=== PATIENT | female | born 1950 | race Caucasian/White ===

== ENCOUNTER 2017-02-01 06:37 | Day surgery (SDC) | payer MEDICARE, BC ==
[~2017-02-01 06:37] MED LIST: Lactated Ringers 1,000 ML IV SCH; Lidocaine 1%/Sod Bicarbonate in NS 8.4% 1 ML Syringe IV PRN; Sodium Chloride 0.9% 10 ML Syringe FLUSH PRN
[2017-02-01] MEDS ORDERED: fentaNYL 100 MCG/2 ML SDV ONE (07:12)
[2017-02-01] MEDS ORDERED: Lidocaine 1% 4 ML ONE (07:12)
[2017-02-01] MEDS ORDERED: Propofol 200 MG/20 ML SDV ONE (07:12)
[2017-02-01] MEDS ORDERED: Midazolam 1 MG/ML 2 ML SDV ONE (07:12)
--- NOTE | 2017-02-01 07:16 | PCM.PREANE ---
Preanesthetic Assessment - Allergies Allergies/Adverse Reactions: Allergies Allergy/AdvReac Type Severity Reaction Status Date / Time pollen extracts Allergy Cannot Verified 01/31/17 15:21 Remember seasonal Allergy Cannot Uncoded 01/31/17 15:21 Remember trees Allergy Cannot Uncoded 01/31/17 15:21 Remember PreAnesthesia Questionnaire HEENT History: Reports: Allergic rhinitis, Other (see below) Other HEENT History: impacted cerumen R ear, glasses, partial Cardiovascular History: Reports: High cholesterol, Hypertension, Other (see below) Other Cardiovascular History: DVT, hypokalemia Respiratory History: Reports: Bronchitis, recurrent Gastrointestinal History: Reports: Chronic diarrhea, GERD Genitourinary History: Reports: None 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 Musculoskeletal History: Reports: None Neurological History: Reports: None Psychiatric History: Reports: None Endocrine/Metabolic History: Reports: Hypothyroidism, Obesity/BMI 30+ Hematologic History: Reports: None Immunologic History: Reports: None Oncologic (Cancer) History: Reports: None Dermatologic History: Reports: None - Past Surgical History Head Surgeries/Procedures: Reports: None GI Surgical History: Reports: Cholecystectomy, Colonoscopy - SUBSTANCE USE Smoking Status *Q: Never Smoker Tobacco Use Within Last Twelve Months: No Second Hand Smoke Exposure: No Days Per Week of Alcohol Use: 0 Recreational Drug Use History: No - HOME MEDS Home Medications: Home Meds Cetirizine [ZyrTEC] 10 mg PO DAILY PRN 01/31/17 [History] Cholecalciferol (Vitamin D3) [Vitamin D3] 1,000 unit PO DAILY 01/31/17 [History] Hydrochlorothiazide 12.5 mg PO DAILY 01/31/17 [History] Levothyroxine 125 mcg PO DAILY 01/31/17 [History] Losartan [Cozaar] 50 mg PO DAILY 01/31/17 [History] Omeprazole [Omeprazole] 40 mg PO DAILY 01/31/17 [History] Pseudoephedrine HCl [Nasal Decongestant] 30 mg PO DAILY 01/31/17 [History] Rivaroxaban [Xarelto] 20 mg PO DAILY 01/31/17 [History] - CURRENT (IN HOUSE) MEDS Current Meds: Current Medications Lactated Ringer's (Ringers, Lactated) 1,000 mls @ 125 mls/hr IV ASDIRECTED GENIE Stop: 02/01/17 23:00 Lidocaine/Sodium Bicarbonate (Buffered Lidocaine 1% In Ns 8.4%) 0.25 ml IV ONETIME PRN PRN Reason: Prior to IV Start Stop: 02/01/17 18:00 Sodium Chloride (Saline Flush) 10 ml FLUSH ASDIRECTED PRN PRN Reason: Keep Vein Open Stop: 02/01/17 18:00 Discontinued Medications Fentanyl (Sublimaze) Confirm Administered Dose 100 mcg .ROUTE .STK-MED ONE Stop: 02/01/17 07:13 Lidocaine HCl (Xylocaine-Mpf 1%) Confirm Administered Dose 4 mls @ as directed .ROUTE .STK-MED ONE Stop: 02/01/17 07:13 Midazolam HCl (Versed 1 Mg/Ml) Confirm Administered Dose 2 mg .ROUTE .STK-MED ONE Stop: 02/01/17 07:13 Propofol (Diprivan 20 Ml) Confirm Administered Dose 200 mg .ROUTE .STK-MED ONE Stop: 02/01/17 07:13 Preanesthetic Assessment - ANESTHESIA/TRANSFUSION/FAMILY HX Anesthesia/Transfusion History: No Prior Transfusion(s), Prior Anesthesia (no prob) Family History of Anesthesia Reaction: No - REVIEW OF SYSTEMS Constitutional: Reports: no 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 Respiratory: Reports: no symptoms Cardiovascular: Reports: blood pressure problem GI: Reports: no symptoms Other: Reports: Easy Bruising, Thyroid Problems, Sinus Problem (pressure) - PHYSICAL ASSESSMENT Height: 5 ft 5 in Weight: 88.451 kg NPO Status Date: 02/01/17 NPO Status Time: 05:00 (half glass water with pills) ASA Class: 2 Mental Status: Alert & Oriented x3 Airway Class: Mallampati = 1 Dentition: Reports: Normal Dentition Thyro-Mental Finger Breadths: 3 Mouth Opening Finger Breadths: 3 ROM/Head Extension: Full Respiratory Status: lungs clear to auscultation bilaterally Cardiovascular Status: regular rate & rhythm, normal S1, S2, no murmur, blood pressure WNL - ALLERGIES Allergies/Adverse Reactions: Allergies Allergy/AdvReac Type Severity Reaction Status Date / Time pollen extracts Allergy Cannot Verified 01/31/17 15:21 Remember seasonal Allergy Cannot Uncoded 01/31/17 15:21 Remember trees Allergy Cannot Uncoded 01/31/17 15:21 Remember - BLOOD Blood Available: No - ANESTHESIA PLAN Preop Beta Clark: No Anesthesia Type Planned: MAC - ACKNOWLEDGEMENTS Pt an Appropriate Candidate for the Planned Anesthesia: Yes Alternatives and Risks of Anesthesia Discussed w Pt/Guardian: Yes Pt/Guardian Understands and Agrees with Anesthesia Plan: Yes
--- NOTE | 2017-02-01 08:33 | PCM.OPNOTE ---
- General Post-Op/Procedure Note Date of Surgery/Procedure: 02/01/17 Operative Procedure(s): colonoscopy with rectal biopsies times 2, using cold forceps Findings: sigmoid diverticulosis and internal hemorrhoids Pre Op Diagnosis: change in bowel habits Post-Op Diagnosis: 1. mixed hemorrhids. 2. sigmoid diverticulosis Anesthesia Technique: MAC, Moderate sedation Primary Surgeon: Jourdan Ochoa Pathology: random rectal biopsies x2 EBL in mLs: 0 Complications: None Condition: Good Free Text/Narrative:: After adequate IV sedation and analgesia was obtained the patient was placed on her left side. Perianal inspection and digital rectal examination revealed mild uncomplicated hemorrhoids. A lubricated colonoscope was inserted into the rectum then advanced under direct vision to the cecum with abdominal pressure. The bowel preparation was excellent. The cecum, right colon, transverse, and descending colons were endoscopically normal with no mas lesions or inflammatory changes seen. The sigmoid had a few scattered uncomplicated diverticula. The rectum was normal in both views. Given her history of change in bowel habits I took 2 random biopsies within the rectum for histologic review. Animal Killer photographs were taken for the patient and for the record. Air was removed, as I finished the procedure, which she tolerated well.
--- NOTE | 2017-02-01 08:33 | PCM48HPAN ---
Post Anesthesia Note - EVALUATION WITHIN 48HRS OF ANESTHETIC Vital Signs in Normal Range: Yes Patient Participated in Evaluation: Yes Respiratory Function Stable: Yes Airway Patent: Yes Cardiovascular Function Stable: Yes Hydration Status Stable: Yes Pain Control Satisfactory: Yes Nausea and Vomiting Control Satisfactory: Yes Mental Status Recovered: Yes
[2017-02-01 08:43] VITALS: BP 107/66
== END 2017-02-01 09:05 | disposition home or self-care (01) ==
LOC: JD.SDS 06:37
PROVIDERS: ATTEND Surgery
DX: K62.1 Rectal polyp (principal); K57.30 Diverticulosis of large intestine without perforation or abscess without bleeding; J30.1 Allergic rhinitis due to pollen; I10 Essential (primary) hypertension; K21.9 Gastro-esophageal reflux disease without esophagitis; E78.5 Hyperlipidemia, unspecified; E87.6 Hypokalemia; E03.9 Hypothyroidism, unspecified; E66.9 Obesity, unspecified; Z91.09 Other allergy status, other than to drugs and biological substances; Z79.899 Other long term (current) drug therapy; Z98.890 Other specified postprocedural states
CPT/HCPCS: 45380; 88305; J2250; J3010; J7120; J2704

== ENCOUNTER 2020-01-25 08:49 | Emergency (ER) | payer MEDICARE, BC ==
[2020-01-25 09:09] VITALS: BP 108/79; PULSE 97
--- NOTE | 2020-01-25 09:25 | EDM.PDOC ---
ED HPI GENERAL MEDICAL PROBLEM - General Chief Complaint: Respiratory Problem Stated Complaint: COUGH,SORE THROAT,CONGESTION Time Seen by Provider: 01/25/20 09:14 Source of Information: Reports: Patient History Limitations: Reports: No Limitations - History of Present Illness INITIAL COMMENTS - FREE TEXT/NARRATIVE: 69-year-old female presents to the ED with upper respiratory tract infection symptoms. Started with a sore throat and fever on January 18. The next day she developed a severe paroxysmal cough which has persisted. Is bringing up some greenish-yellow sputum. Coughed all night last night. Decreased appetite through this illness. Associated headache and generalized myalgia. Her granddaughter was brought to live with her for a few days from [place] and apparently tested positive for the influenza A virus. She herself has had a flu shot. She has also had intermittent diarrhea during this illness. A 2 or 3 times per day. Vomiting. Does feel lightheaded and dizzy and dehydrated. Onset: Sudden Onset Date: 01/19/20 Duration: Day(s):, Getting Worse (Paroxysmal cough) Location: Reports: Head (Take), Chest ( harsh paroxysmal productive cough), Generalized (Diffuse myalgia), Other (To both ears) Quality: Reports: Other (Headache with productive cough decreased appetite) Severity: Moderate Improves with: Reports: None Worsens with: Reports: Other (Down seems to make the cough much worse.) Context: Reports: Sick Contact. Denies: Activity, Exercise, Lifting, Trauma, Other (Granddaughter positive for influenza A) Associated Symptoms: Reports: Chest Pain, Cough, cough w sputum, Fever/Chills, Headaches (Coughing so much), Loss of Appetite, Malaise, Nausea/Vomiting, Shortness of Breath, Other (Area). 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 Allergy Rash Uncoded 01/25/20 09:00 metals. Allergy Rash Uncoded 01/25/20 09:00 seasonal Allergy Cannot Uncoded 01/25/20 08:59 Remember trees Allergy Cannot Uncoded 01/25/20 08:59 Remember Home Meds: Home Meds Cholecalciferol (Vitamin D3) [Vitamin D3] 1,000 unit PO DAILY 01/31/17 [History] Levothyroxine 125 mcg PO DAILY 01/31/17 [History] Losartan [Cozaar] 50 mg PO DAILY 01/31/17 [History] Omeprazole 40 mg PO DAILY 01/31/17 [History] Rivaroxaban [Xarelto] 20 mg PO DAILY 01/31/17 [History] Doxycycline [Vibramycin] 100 mg PO BID #20 cap 01/25/20 [Rx] Hydrocodone/Chlorphen P-Stirex [Hydrocodone-Chlorphen ER Susp] 5 ml PO Q12H #60 ml 01/25/20 [Rx] Past Medical History HEENT History: Reports: Allergic Rhinitis, Other (See Below) Other HEENT History: impacted cerumen R ear, glasses, partial Cardiovascular History: Reports: High Cholesterol, Hypertension, Other (See Below) Other Cardiovascular History: DVT Respiratory History: Reports: Bronchitis, Recurrent Gastrointestinal History: Reports: Chronic Diarrhea, GERD Genitourinary History: Reports: None 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 Musculoskeletal History: Reports: None Neurological History: Reports: None Psychiatric History: Reports: None Endocrine/Metabolic History: Reports: Hypothyroidism, Obesity/BMI 30+ Hematologic History: Reports: None Immunologic History: Reports: None Oncologic (Cancer) History: Reports: Breast Dermatologic History: Reports: None - Past Surgical History Head Surgeries/Procedures: Reports: None Musculoskeletal Surgical History: Reports: Shoulder Surgery Oncologic Surgical History: Reports: Lumpectomy Other Oncologic Surgeries/Procedures: radiation Social & Family History - Tobacco Use Smoking Status *Q: Never Smoker Second Hand Smoke Exposure: No - Caffeine Use Caffeine Use: Reports: None - Recreational Drug Use Recreational Drug Use: No - Living Situation & Occupation Living situation: Reports: Occupation: Retired ED ROS GENERAL - Review of Systems Review Of Systems: See Below Constitutional: Reports: Fever, Chills, Malaise, Weakness, Fatigue, Decreased Appetite, Weight Loss HEENT: Reports: Glasses Respiratory: Reports: Shortness of Breath, Cough, Sputum. Denies: Pleuritic Chest Pain, Hemoptysis Cardiovascular: Reports: Chest Pain, Dyspnea on Exertion, Lightheadedness. Denies: Blood Pressure Problem (Coughing so much), Claudication, Edema, Orthopnea Endocrine: Reports: Fatigue GI/Abdominal: Reports: Diarrhea (2-3 loose stools per day the last 3 days), Decreased Appetite : Reports: Frequency, Incontinence (Some stress-induced incontinence) Musculoskeletal: Reports: Back Pain, Muscle Pain Skin: Reports: No Symptoms (Generalized myalgia) Neurological: Reports: No Symptoms Psychiatric: Reports: No Symptoms Hematologic/Lymphatic: Reports: No Symptoms Immunologic: Reports: No Symptoms ED EXAM, GENERAL - Physical Exam Exam: See Below Exam Limited By: No Limitations General Appearance: Alert, WD/WN, Mild Distress, Other (Temperature is 37.2 pulse 97 sinus respiratory 16 BP 108/79 respiratory rate 93% on room air.) Eye Exam: Bilateral Eye: Normal Inspection, PERRL (Scleral icterus or blepharal pallor.) Ears: Normal TMs Throat/Mouth: Normal Inspection (Ears appear normal in spite of her complaining of ear pain.), Normal Lips, Normal Teeth, Normal Oropharynx Head: Atraumatic, Normocephalic. No: Facial Swelling, Facial Tenderness Neck: Normal Inspection, Supple, Non-Tender, Full Range of Motion. No: Lymphadenopathy (L), Lymphadenopathy (R) Respiratory/Chest: No Respiratory Distress, Decreased Breath Sounds ( lower lung chung), Rhonchi, Wheezing (I upper anterior chest. Patient expiratory wheeze from both). No: Lungs Clear, Normal Breath Sounds Cardiovascular: Normal Peripheral Pulses, Regular Rate, Rhythm, No Edema, No Gallop, No Murmur ( creased breath sounds to lower 20% lung chung bilaterally) , No Rub Peripheral Pulses: 2+: Posterior Tibial (L), Posterior Tibial (R), Dorsalis Pedis (L), Dorsalis Pedis (R) GI/Abdominal: Normal Bowel Sounds, Soft, Non-Tender, No Organomegaly, Distended (Mildly distended intubated back to percussion across the entire upper abdomen combined with aerophagia.) Back Exam: Normal Inspection, Full Range of Motion, CVA Tenderness (R). No: CVA Tenderness (L) Extremities: Normal Inspection, Normal Range of Motion, Non-Tender Neurological: Alert, Oriented, CN II-XII Intact, Normal Cognition, Sensory/ Motor Deficit Psychiatric: Normal Affect Course - Vital Signs Last Recorded V/S: Last Vital Signs Temp 37.2 C 01/25/20 09:03 Pulse 97 01/25/20 09:03 Resp 16 01/25/20 09:03 BP 108/79 01/25/20 09:03 Pulse Ox 94 L 01/25/20 09:44 - Orders/Labs/Meds Orders: Active Orders 24 hr Category Date Time Status EKG Documentation Completion [RC] STAT Care 01/25/20 10:37 Active Oxygen Therapy [RC] ASDIRECTED Care 01/25/20 10:38 Active RT Aerosol Therapy [RC] ASDIRECTED Care 01/25/20 09:26 Active Chest 1V Frontal [CR] Stat Exams 01/25/20 09:25 Taken Isolation [COMM] Routine Oth 01/25/20 09:25 Ordered Labs: Laboratory Tests 01/25/20 01/25/20 Range/Units 11:20 11:20 WBC 8.63 (3.98-10.04) K/mm3 RBC 4.50 (3.98-5.22) M/mm3 Hgb 14.3 (11.2-15.7) gm/dl Hct 42.8 (34.1-44.9) % MCV 95.1 H D (79.4-94.8) fl MCH 31.8 (25.6-32.2) pg MCHC 33.4 (32.2-35.5) g/dl RDW Std Deviation 46.5 H (36.4-46.3) fL Plt Count 282 (182-369) K/mm3 MPV 9.6 (9.4-12.3) fl Neut % (Auto) 59.8 (34.0-71.1) % Lymph % (Auto) 25.5 (19.3-51.7) % Barron % (Auto) 10.2 (4.7-12.5) % Eos % (Auto) 3.7 (0.7-5.8) Baso % (Auto) 0.6 (0.1-1.2) % Neut # (Auto) 5.16 (1.56-6.13) K/mm3 Lymph # (Auto) 2.20 (1.18-3.74) K/mm3 Barron # (Auto) 0.88 H (0.24-0.36) K/mm3 Eos # (Auto) 0.32 (0.04-0.36) K/mm3 Baso # (Auto) 0.05 (0.01-0.08) K/mm3 Sodium 141 (136-145) mEq/L Potassium 4.2 (3.5-5.1) mEq/L Chloride 104 (98-107) mEq/L Carbon Dioxide 24 (21-32) mEq/L Anion Gap 17.2 H (5-15) BUN 15 (7-18) mg/dL Creatinine 1.0 (0.55-1.02) mg/dL Est Cr Clr Drug Dosing 46.43 mL/min Estimated GFR (MDRD) 55 (>60) mL/min BUN/Creatinine Ratio 15.0 (14-18) Glucose 130 H (83-115) mg/dL Calcium 9.5 (8.5-10.1) mg/dL Total Bilirubin 0.4 (0.2-1.0) mg/dL AST 21 (15-37) U/L ALT 30 (14-59) U/L Alkaline Phosphatase 103 (46-116) U/L Troponin I < 0.017 (0.00-0.056) ng/mL C-Reactive Protein 5.2 H* (<1.0) mg/dL Total Protein 7.3 (6.4-8.2) g/dl Albumin 3.3 L (3.4-5.0) g/dl Globulin 4.0 gm/dL Albumin/Globulin Ratio 0.8 L (1-2) Meds: Medications Discontinued Medications Generic Name Dose Route Start Last Admin Trade Name Freq PRN Reason Stop Dose Admin Albuterol/Ipratropium 3 ml 01/25/20 09:26 01/25/20 09:44 Duoneb 3.0-0.5 Mg/3 Ml NEB 01/25/20 09:27 3 ml ONETIME ONE Administration - Radiology Interpretation Free Text/Narrative:: 69-year-old female presents to the ED with upper respiratory tract symptoms I sore throat sore ears paroxysmal productive cough generalized myalgia decreased appetite and headache since January 18. History suggests influenza. She was exposed to influenza A through 1 of her granddaughters last weekend. Oxygen levels a bit on the low side. She was given oxygen at 2 L/min by nasal cannula. - Re-Assessments/Exams Free Text/Narrative Re-Assessment/Exam: 01/25/20 10:36 influenza screen is negative. Chest x-ray is essentially within normal limits showing no obvious pneumonia and cardiac silhouette is normal. 01/25/20 11:52 Labs are pending. 01/25/20 12:38 Labs reveal a normal white count at 8.63. The auto differential shows 59% neutrophils are 60% neutrophils hemoglobin 14.3 with hematocrit of 42.8. Platelet count 282,000. Sodium is 141 with a potassium of 4.2 chloride 104 with a bicarb of 24. Anion gap slightly elevated at 17.2. BUN is 15 with a creatinine of 1.0. Glucose 130. Calcium 9.5 liver function is normal troponin I is less than 0.017 C-reactive protein is elevated at 5.2 total protein is 7.3 with an albumin fraction of 3.3. Patient therefore appears to have a bronchitis without pneumonia. To place her on doxycycline 100 mg twice daily for the next 10 days. Tussionex cough syrup 5 mils every 12 hours. For cough relief. Departure - Departure Time of Disposition: 12:39 Disposition: Home, Self-Care 01 Condition: Fair Clinical Impression: Bronchitis Upper respiratory tract infection Qualifiers: URI type: unspecified URI Qualified Code(s): J06.9 - Acute upper respiratory infection, unspecified - Discharge Information *PRESCRIPTION DRUG MONITORING PROGRAM REVIEWED*: Not Applicable *COPY OF PRESCRIPTION DRUG MONITORING REPORT IN PATIENT GAYATHRI: Not Applicable Prescriptions: Doxycycline [Vibramycin] 100 mg PO BID #20 cap Hydrocodone/Chlorphen P-Stirex [Hydrocodone-Chlorphen ER Susp] 5 ml PO Q12H #60 ml Instructions: Acute Bronchitis, Adult, [id number] Referrals: Sandi Corral, TECHNOLOGY ARCHITECT [Primary Care Provider] - Forms: ED Department Discharge Additional Instructions: Valuation in the emergency room today in regards to development of a severe paroxysmal productive cough and low-grade fever for the last 6 days. Exposure to suspect influenza in your granddaughter. Dania screen here is negative. Chest x-ray was negative for pneumonia as well. Clinically you have bronchitis and lab tests revealed a low-grade infective process most likely bacterial in origin. Therefore treatment is to be antibiotic doxycycline 100 mg twice daily for the next 10 days to clear up bronchitis and prevent pneumonia. Cough syrup is to be Tussionex 5 mils every 12 hours as necessary for relief of severe cough. Plan taking a good hour before bed as it takes an hour to work and usually will help facilitate sleep. Up with personal care physician if not completely back to normal in 5 to 7 days time Sepsis Event Note - Evaluation Sepsis Screening Result: Possible Sepsis Risk - Focused Exam Vital Signs: Vital Signs Temp Pulse Resp BP Pulse Ox Pulse Ox 01/25/20 09:44 94 L 01/25/20 09:03 37.2 C 97 16 108/79 93 L Date Exam was Performed: 01/25/20 Time Exam was Performed: 14:01 - My Orders Last 24 Hours: My Active Orders 01/25/20 09:25 Chest 1V Frontal [CR] Stat Isolation [COMM] Routine 01/25/20 09:26 RT Aerosol Therapy [RC] ASDIRECTED 01/25/20 10:37 EKG Documentation Completion [RC] STAT 01/25/20 10:38 Oxygen Therapy [RC] ASDIRECTED - Assessment/Plan Last 24 Hours: My Active Orders 01/25/20 09:25 Chest 1V Frontal [CR] Stat Isolation [COMM] Routine 01/25/20 09:26 RT Aerosol Therapy [RC] ASDIRECTED 01/25/20 10:37 EKG Documentation Completion [RC] STAT 01/25/20 10:38 Oxygen Therapy [RC] ASDIRECTED
[2020-01-25] MEDS ORDERED: Albuterol/Ipratropium 3.0-0.5 MG/3 ML Neb Soln NEB ONE (09:26)
--- NOTE | 2020-01-27 07:34 | CR ---
Chest: Portable view of the chest was obtained. Comparison: Prior chest x-ray of 09/25/17. Heart size is normal. Mild tortuosity of the thoracic aorta is seen. Lungs are clear with no acute parenchymal change. Bony structures shows prior right shoulder surgery. Impression: 1. Nothing acute is appreciated on portable chest x-ray. Diagnostic code #2 This report was dictated in MDT
== END 2020-01-25 12:50 | disposition home or self-care (01) ==
LOC: JD.ED 08:49
DX: J06.9 Acute upper respiratory infection, unspecified (principal); J40 Bronchitis, not specified as acute or chronic; I10 Essential (primary) hypertension; Z88.8 Allergy status to other drugs, medicaments and biological substances; Z91.018 Allergy to other foods; Z79.899 Other long term (current) drug therapy
CPT/HCPCS: 36415; 71045; 71045-26; 80053; 84484; 85025; 86140; 87804; 93005; 94640; 99283; 99284-25; J7620-GY

== ENCOUNTER 2020-03-19 17:14 | Emergency (ER) | payer MEDICARE, BC ==
[2020-03-19 17:39] VITALS: BP 127/79; PULSE 89
[2020-03-19] MEDS ORDERED: Sodium Chloride 0.9% 10 ML Syringe FLUSH PRN (17:53)
[2020-03-19] MEDS ORDERED: Ondansetron 4 MG/2 ML SDV IVPUSH ONE (17:53)
[2020-03-19] MEDS ORDERED: Sodium Chloride 0.9% 1,000 ML IV SCH (18:00)
--- NOTE | 2020-03-19 18:21 | EDM.PDOC ---
ED HPI GENERAL MEDICAL PROBLEM - General Chief Complaint: Gastrointestinal Problem Stated Complaint: VOMITING/DIARRHEA Time Seen by Provider: 03/19/20 17:24 Source of Information: Reports: Patient History Limitations: Reports: No Limitations - History of Present Illness INITIAL COMMENTS - FREE TEXT/NARRATIVE: Patient is a 69-year-old female who presents to the emergency department with complaints of vomiting and watery diarrhea since yesterday. She had a similar episode to this approximately 3 weeks ago. She verbalizes that she chronically has soft to loose bowel movements, however since yesterday she has been having watery diarrhea. She also had emesis starting last night and was unable to keep food or liquids down. She states she was feeling a little better this morning. She was able to eat some coffee and rice checks for breakfast around 530 this morning. Then around 11:00 she ate an egg and shortly thereafter started vomiting again. Since that time, she has been taking small sips of water but vomits it back up. At the time she vomits, she experiences some abdominal cramping, however she has no abdominal pain. She feels that there is something "not right "with her digestive system. Her normal stools are quite soft and often stringy and have the appearance of undigested food. She has never been evaluated by her primary care provider for this concern and has never been seen by a GI specialist. She denies any fever, chills, shortness of breath, or chest pain. Patient reports a history of acid reflux for which she used to take omeprazole. She verbalizes that back in January, she stopped taking this medication and was using a mixture of honey and cinnamon each morning which seemed to be working well. She has not been using that recently and states that her reflux has been increasing. Patient also verbalizes concern regarding chronic itching in her groin folds and eric-area. She denies a known rash, however states sometimes it is red. She has been using Vagisil cream which she states does help a little bit but it never totally goes away. She denies any vaginal itching or abnormal vaginal discharge. States that the itching is external to her pubis and groin folds. - Related Data Allergies Allergy/AdvReac Type Severity Reaction Status Date / Time pollen extracts Allergy Cannot Verified 01/25/20 08:59 Remember elastic. Allergy Rash Uncoded 01/25/20 09:00 metals. Allergy Rash Uncoded 01/25/20 09:00 seasonal Allergy Cannot Uncoded 01/25/20 08:59 Remember trees Allergy Cannot Uncoded 01/25/20 08:59 Remember Home Meds: Home Meds Cholecalciferol (Vitamin D3) [Vitamin D3] 1,000 unit PO DAILY 01/31/17 [History] Levothyroxine 125 mcg PO DAILY 01/31/17 [History] Losartan [Cozaar] 50 mg PO DAILY 01/31/17 [History] Rivaroxaban [Xarelto] 20 mg PO DAILY 01/31/17 [History] Anastrozole [Arimidex] 1 mg PO DAILY 03/19/20 [History] L Acidophil/B Lactis/B Longum [Florajen3] 1 cap PO DAILY 03/19/20 [History] Nitrofurantoin Monohyd/M-Cryst [Macrobid 100 mg Capsule] 100 mg PO BID #9 capsule 03/19/20 [Rx] Nystatin [Nyamyc] 15 gm TP TID #1 powder 03/19/20 [Rx] Ondansetron [Zofran ODT] 4 mg PO Q6H PRN #10 tab.dis 03/19/20 [Rx] Vitamin B Complex 1 cap PO DAILY 03/19/20 [History] Past Medical History HEENT History: Reports: Allergic Rhinitis, Other (See Below) Other HEENT History: impacted cerumen R ear, glasses, partial Cardiovascular History: Reports: High Cholesterol, Hypertension, Other (See Below) Other Cardiovascular History: DVT Respiratory History: Reports: Bronchitis, Recurrent Gastrointestinal History: Reports: Chronic Diarrhea, GERD Genitourinary History: Reports: None 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 Musculoskeletal History: Reports: None Neurological History: Reports: None Psychiatric History: Reports: None Endocrine/Metabolic History: Reports: Hypothyroidism, Obesity/BMI 30+ Hematologic History: Reports: None Immunologic History: Reports: None Oncologic (Cancer) History: Reports: Breast Dermatologic History: Reports: None - Past Surgical History Head Surgeries/Procedures: Reports: None Musculoskeletal Surgical History: Reports: Shoulder Surgery Oncologic Surgical History: Reports: Lumpectomy Other Oncologic Surgeries/Procedures: radiation Social & Family History - Tobacco Use Smoking Status *Q: Never Smoker - Caffeine Use Caffeine Use: Reports: Coffee - Recreational Drug Use Recreational Drug Use: No - Living Situation & Occupation Living situation: Reports: Occupation: Retired ED ROS GENERAL - Review of Systems Review Of Systems: Comprehensive ROS is negative, except as noted in HPI. ED EXAM, GI/ABD - Physical Exam Exam: See Below Exam Limited By: No Limitations General Appearance: Alert, WD/WN, No Apparent Distress Respiratory/Chest: No Respiratory Distress, Lungs Clear, Normal Breath Sounds, No Accessory Muscle Use, Chest Non-Tender Cardiovascular: Normal Peripheral Pulses, Regular Rate, Rhythm, No Edema, No Gallop, No JVD, No Murmur, No Rub GI/Abdominal Exam: Normal Bowel Sounds, Soft, Non-Tender, No Organomegaly, No Distention, No Abnormal Bruit, No Mass, Pelvis Stable (Female) Exam: Other (Mild redness noted to bilateral groin folds.) Neurological: Alert, Oriented, CN II-XII Intact, Normal Cognition, Normal Gait, Normal Reflexes, No Motor/Sensory Deficits Psychiatric: Normal Affect, Normal Mood Skin Exam: Warm, Dry, Intact, Normal Color, No Rash Course - Vital Signs Last Recorded V/S: Last Vital Signs Temp 98.8 F 03/19/20 17:37 Pulse 89 03/19/20 17:37 Resp 20 03/19/20 17:37 BP 127/79 03/19/20 17:37 Pulse Ox 92 L 03/19/20 17:37 - Orders/Labs/Meds Orders: Active Orders 24 hr Category Date Time Status Peripheral IV Care [RC] . DIRECTED Care 03/19/20 17:53 Active CULTURE URINE [RM] Stat Lab 03/19/20 19:45 Received Peripheral IV Insertion Adult [OM.PC] Stat Oth 03/19/20 17:52 Ordered Labs: Laboratory Tests 03/19/20 03/19/20 03/19/20 Range/Units 18:10 18:10 19:45 WBC 9.50 (3.98-10.04) K/mm3 RBC 4.94 (3.98-5.22) M/mm3 Hgb 15.7 (11.2-15.7) gm/dl Hct 46.5 H (34.1-44.9) % MCV 94.1 (79.4-94.8) fl MCH 31.8 (25.6-32.2) pg MCHC 33.8 (32.2-35.5) g/dl RDW Std Deviation 49.6 H (36.4-46.3) fL Plt Count 269 (182-369) K/mm3 MPV 9.6 (9.4-12.3) fl Neut % (Auto) 65.3 (34.0-71.1) % Lymph % (Auto) 23.6 (19.3-51.7) % [place] % (Auto) 9.1 (4.7-12.5) % Eos % (Auto) 1.5 (0.7-5.8) Baso % (Auto) 0.3 (0.1-1.2) % Neut # (Auto) 6.21 H (1.56-6.13) K/mm3 Lymph # (Auto) 2.24 (1.18-3.74) K/mm3 [place] # (Auto) 0.86 H (0.24-0.36) K/mm3 Eos # (Auto) 0.14 (0.04-0.36) K/mm3 Baso # (Auto) 0.03 (0.01-0.08) K/mm3 Sodium 138 (136-145) mEq/L Potassium 3.6 (3.5-5.1) mEq/L Chloride 101 (98-107) mEq/L Carbon Dioxide 24 (21-32) mEq/L Anion Gap 16.6 H (5-15) BUN 21 H (7-18) mg/dL Creatinine 1.3 H (0.55-1.02) mg/dL Est Cr Clr Drug Dosing 35.72 mL/min Estimated GFR (MDRD) 40 (>60) mL/min BUN/Creatinine Ratio 16.2 (14-18) Glucose 114 (83-115) mg/dL Calcium 9.5 (8.5-10.1) mg/dL Magnesium 1.7 L (1.8-2.4) mg/dl Total Bilirubin 0.6 (0.2-1.0) mg/dL AST 31 (15-37) U/L ALT 38 (14-59) U/L Alkaline Phosphatase 86 (46-116) U/L C-Reactive Protein 1.2 H* (<1.0) mg/dL Total Protein 7.8 (6.4-8.2) g/dl Albumin 3.9 (3.4-5.0) g/dl Globulin 3.9 gm/dL Albumin/Globulin Ratio 1.0 (1-2) Urine Color Yellow (Yellow) Urine Appearance Clear (Clear) Urine pH 6.0 (5.0-8.0) Ur Specific [place] 1.025 (1.005-1.030) Urine Protein Negative (Negative) Urine Glucose (UA) Negative (Negative) Urine Ketones Negative (Negative) Urine Occult Blood Trace-intact H (Negative) Urine Nitrite Negative (Negative) Urine Bilirubin Negative (Negative) Urine Urobilinogen 0.2 (0.2-1.0) Ur Leukocyte Esterase 1+ H (Negative) Urine RBC 0-5 (0-5) /hpf Urine WBC 5-10 H (0-5) /hpf Ur Squamous Epith Cells 5-10 H (0-5) /hpf Urine Bacteria Few (FEW) /hpf Urine Mucus Few (FEW) /hpf Meds: Medications Discontinued Medications Generic Name Dose Route Start Last Admin Trade Name Freq PRN Reason Stop Dose Admin Sodium Chloride 1,000 mls @ 999 mls/hr 03/19/20 18:00 03/19/20 18:22 Normal Saline IV 999 mls/hr ASDIRECTED GENIE Administration Nitrofurantoin Macrocrystals 100 mg 03/19/20 20:42 03/19/20 21:01 Macrobid PO 03/19/20 20:43 100 mg ONETIME ONE Administration Ondansetron HCl 4 mg 03/19/20 17:53 03/19/20 18:22 Zofran IVPUSH 03/19/20 17:54 4 mg ONETIME ONE Administration Sodium Chloride 10 ml 03/19/20 17:53 03/19/20 18:33 Saline Flush FLUSH 10 ml ASDIRECTED PRN Administration Keep Vein Open - Re-Assessments/Exams Free Text/Narrative Re-Assessment/Exam: 03/19/20 19:32 Patient's nausea has improved since the Zofran. She is unable to void at this point. She does still have about three quarters of a liter of IV fluids left. I will let her start sipping on some water. Awaiting urinalysis. 03/19/20 20:42 Hematology was significant for an anion gap slightly elevated at 16.6, BUN 21, creatinine 1.3, CRP 1.2, magnesium 1.7. Urinalysis was significant for trace occult blood, 1+ leukocyte esterase, 5-10 WBCs, and 5-10 squamous epithelial cells. Patient is feeling much better. She has been able to drink an entire glass of water without further not nausea or emesis. We will start her on Macrobid to cover for urinary tract infection. Sent a prescription for Zofran, as well as nystatin powder to [facility]. Discharge instructions as documented. Departure - Departure Time of Disposition: 20:43 Disposition: Home, Self-Care 01 Condition: Good Clinical Impression: Vomiting, UTI, Urinary tract infectious disease, Annika infection Diarrhea Qualifiers: Diarrhea type: unspecified type Qualified Code(s): R19.7 - Diarrhea, unspecified - Discharge Information *PRESCRIPTION DRUG MONITORING PROGRAM REVIEWED*: No *COPY OF PRESCRIPTION DRUG MONITORING REPORT IN PATIENT GAYATHRI: No Prescriptions: Nitrofurantoin Monohyd/M-Cryst [Macrobid 100 mg Capsule] 100 mg PO BID #9 capsule Nystatin [Nyamyc] 15 gm TP TID #1 powder Ondansetron [Zofran ODT] 4 mg PO Q6H PRN #10 tab.dis PRN Reason: Nausea/Vomiting Instructions: Urinary Tract Infection, Adult, [id number], Nausea and Vomiting , Adult, Vomiting, Adult, Chronic Diarrhea Referrals: Sandi Corral, [employer] [Primary Care Provider] - Forms: ED Department Discharge Additional Instructions: You were seen in the emergency department today for nausea and vomiting, diarrhea, and itching in your eric-area. Work-up included blood work and urinalysis. Your blood work was overall normal, with the exception of being slightly dehydrated. Urinalysis was suspicious for a mild urinary tract infection. While in the ER, you received an ED liter of IV fluids and Zofran for nausea. This did improve your symptoms. A prescription for an antibiotic, Macrobid, Zofran for nausea, and nystatin powder has been sent to [facility] pharmacy. Take these medications as prescribed. As we discussed, I would recommend that you call to schedule an appointment with your primary care provider to discuss your chronic diarrhea. If you should experience any new or worsening symptoms, please not hesitate to return to the emergency department. Sepsis Event Note - Evaluation Sepsis Screening Result: No Definite Risk - Focused Exam Vital Signs: Vital Signs Temp Pulse Resp BP Pulse Ox 03/19/20 17:37 98.8 F 89 20 127/79 92 L Date Exam was Performed: 03/19/20 Time Exam was Performed: 22:42 - My Orders Last 24 Hours: My Active Orders 03/19/20 17:52 Peripheral IV Insertion Adult [OM.PC] Stat 03/19/20 17:53 Peripheral IV Care [RC] . DIRECTED 03/19/20 19:45 CULTURE URINE [RM] Stat - Assessment/Plan Last 24 Hours: My Active Orders 03/19/20 17:52 Peripheral IV Insertion Adult [OM.PC] Stat 03/19/20 17:53 Peripheral IV Care [RC] . DIRECTED 03/19/20 19:45 CULTURE URINE [RM] Stat
[2020-03-19] MEDS ORDERED: Nitrofurantoin Monohydrate/Macrocrystalline 100 MG Cap PO ONE (20:42)
== END 2020-03-19 21:04 | disposition home or self-care (01) ==
LOC: JD.ED 17:14
DX: N39.0 Urinary tract infection, site not specified (principal); R19.7 Diarrhea, unspecified; B37.9 Candidiasis, unspecified; I10 Essential (primary) hypertension; E03.9 Hypothyroidism, unspecified; Z79.01 Long term (current) use of anticoagulants; E66.9 Obesity, unspecified; Z68.26 Body mass index [BMI] 26.0-26.9, adult; Z91.09 Other allergy status, other than to drugs and biological substances; Z79.899 Other long term (current) drug therapy
CPT/HCPCS: 36415; 80053; 81001; 83735; 85025; 86140; 87086; 96361; 96374; 99283; 99284-25; A9270-GY; J2405; J7030

== ENCOUNTER 2022-03-13 13:03 | Emergency (ER) | payer MEDICARE, BC ==
[2022-03-13] MEDS ORDERED: atorvaSTATin 40 MG Tab PO ONE (15:18)
[2022-03-13 17:58] VITALS: BP 127/75; PULSE 79
== END 2022-03-13 15:33 | disposition home or self-care (01) ==
LOC: JD.ED 13:03
DX: G45.9 Transient cerebral ischemic attack, unspecified (principal); E78.00 Pure hypercholesterolemia, unspecified; I10 Essential (primary) hypertension; K21.9 Gastro-esophageal reflux disease without esophagitis; E03.9 Hypothyroidism, unspecified; E66.9 Obesity, unspecified; Z68.33 Body mass index [BMI] 33.0-33.9, adult; Z91.048 Other nonmedicinal substance allergy status; Z79.899 Other long term (current) drug therapy
CPT/HCPCS: 36415; 70450; 80053; 83735; 85025; 85610; 93005; 99284; A9270

== ENCOUNTER 2022-07-11 07:44 | Emergency (ER) | payer MEDICARE, BC ==
[2022-07-11 08:04] VITALS: BP 118/77; PULSE 88
[2022-07-11] MEDS ORDERED: Amoxicillin/Clavulanate K 500-125 MG Tab PO ONE (08:20)
[2022-07-11] MEDS ORDERED: Pseudoephedrine 30 MG Tab PO ONE (08:20)
[2022-07-11] MEDS ORDERED: traMADol 50 MG Tab PO ONE (08:21)
[2022-07-11] MEDS ORDERED: Dexamethasone 6 MG TABLET PO ONE (08:23)
== END 2022-07-11 08:45 | disposition home or self-care (01) ==
LOC: JD.ED 07:44
DX: J30.9 Allergic rhinitis, unspecified (principal); H66.93 Otitis media, unspecified, bilateral; E78.00 Pure hypercholesterolemia, unspecified; I10 Essential (primary) hypertension; K21.9 Gastro-esophageal reflux disease without esophagitis; E03.9 Hypothyroidism, unspecified; E66.9 Obesity, unspecified; Z68.33 Body mass index [BMI] 33.0-33.9, adult; Z91.048 Other nonmedicinal substance allergy status; Z79.899 Other long term (current) drug therapy; Z79.01 Long term (current) use of anticoagulants
CPT/HCPCS: 99282; A9270; J8540

== ENCOUNTER 2023-04-22 06:06 | Emergency (ER) | payer MEDICARE, BC ==
[2023-04-22] MEDS ORDERED: Sodium Chloride 0.9% 10 ML Syringe FLUSH PRN (07:13)
[2023-04-22] MEDS ORDERED: Metoclopramide 10 MG/2 ML SDV IVPUSH ONE (07:13)
[2023-04-22] MEDS ORDERED: Sodium Chloride 0.9% 1,000 ML IV STA (07:13)
[2023-04-22] MEDS ORDERED: diphenhydrAMINE 50 MG/ML SDV IVPUSH ONE (07:15)
[2023-04-22] MEDS ORDERED: Ketorolac 30 MG/ML SDV IVPUSH ONE (07:15)
[2023-04-22 08:02] LABS: BASOPHILS ABSOLUTE AUTO 0.02 K/mm3 (0.01-0.08); BASOPHILS PERCENT AUTO 0.4 % (0.1-1.2); EOSINOPHILS ABSOLUTE AUTO 0.29 K/mm3 (0.04-0.36); EOSINOPHILS PERCENT AUTO 5.4 (0.7-5.8); HEMATOCRIT 39.2 % (34.1-44.9); HEMOGLOBIN 13.2 gm/dl (11.2-15.7); IMMATURE GRAN ABSOLUTE AUTO 0.03 K/mm3 (0.00-0.10); IMMATURE GRAN PERCENT AUTO 0.6 % (<=1.0); LYMPHOCYTES ABSOLUTE AUTO 1.35 K/mm3 (1.18-3.74); LYMPHOCYTES PERCENT AUTO 24.9 % (19.3-51.7); MEAN CORPUSCULAR HEMOGLOBIN 31.7 pg (25.6-32.2); MEAN CORPUSCULAR HGB CONC 33.7 g/dl (32.2-35.5); MEAN CORPUSCULAR VOLUME 94.2 fl (79.4-94.8); MEAN PLATELET VOLUME 8.8 fl (9.4-12.3); MONOCYTES ABSOLUTE AUTO 0.58 K/mm3 (0.24-0.36); MONOCYTES PERCENT AUTO 10.7 % (4.7-12.5); NEUTROPHILS ABSOLUTE AUTO 3.15 K/mm3 (1.56-6.13); PLATELET COUNT,PLT 300 K/mm3 (182-369); RED BLOOD CELL COUNT 4.16 M/mm3 (3.98-5.22); WHITE BLOOD CELL COUNT,WBC 5.42 K/mm3 (3.98-10.04)
[2023-04-22 08:22] LABS: A/G RATIO 0.8 (1-2); ALBUMIN 2.8 g/dl (3.4-5.0); ANION GAP 10.4 (5-15); BILIRUBIN TOTAL 0.3 mg/dL (0.2-1.0); CALCIUM 8.5 mg/dL (8.5-10.1); CREATININE 1.3 mg/dL (0.55-1.02); EST CRCL DRUG DOSING (CG) 34.16 mL/min; POTASSIUM,K 3.4 mEq/L (3.5-5.1); PROTEIN TOTAL,TP 6.3 g/dl (6.4-8.2)
[2023-04-22 08:30] LABS: APPEARANCE,URINE CLEAR (Clear); BILIRUBIN,URINE NEGATIVE (Negative); COLOR,URINE YELLOW (Yellow); GLUCOSE,URINE NEGATIVE (Negative); KETONES,URINE NEGATIVE (Negative); LEUKOCYTE ESTERASE,URINE NEGATIVE (Negative); NITRITE,URINE NEGATIVE (Negative); OCCULT BLOOD,URINE TRACE-INTACT (Negative); PH,URINE 6.5 (5.0-8.0); PROTEIN,URINE NEGATIVE (Negative); UROBILINOGEN,URINE 0.2 (0.2-1.0)
[2023-04-22 08:40] LABS: BACTERIA,URINE RARE /hpf (FEW); EPITHELIAL CELLS,URINE 0-5 /hpf (0-5); MUCUS,URINE RARE /hpf (FEW); RBC,URINE 0-5 /hpf (0-5); WBC,URINE NOT SEEN /hpf (0-5)
[2023-04-22 14:09] VITALS: BP 116/68; PULSE 73
== END 2023-04-22 10:25 | disposition home or self-care (01) ==
LOC: JD.ED 06:06
DX: K57.92 Diverticulitis of intestine, part unspecified, without perforation or abscess without bleeding (principal); R51.9 Headache, unspecified; E86.0 Dehydration; R35.0 Frequency of micturition; E78.00 Pure hypercholesterolemia, unspecified; I11.9 Hypertensive heart disease without heart failure; K21.9 Gastro-esophageal reflux disease without esophagitis; E03.9 Hypothyroidism, unspecified; E66.9 Obesity, unspecified; Z91.048 Other nonmedicinal substance allergy status; Z91.09 Other allergy status, other than to drugs and biological substances; Z86.16 Personal history of COVID-19; Z68.31 Body mass index [BMI] 31.0-31.9, adult
CPT/HCPCS: 36415; 71045; 80053; 81001; 85025; 96361; 96374; 96375; 99284; J1200; J1885; J2765; J7030

== ENCOUNTER 2023-06-27 06:36 | Day surgery (SDC) | payer MEDICARE, BC ==
[~2023-06-27 06:36] MED LIST changes: -Lidocaine 1%/Sod Bicarbonate in NS 8.4% 1 ML Syringe IV PRN; +Sodium Chloride 0.9% 10 ML Syringe FLUSH SCH
[2023-06-27] MEDS ORDERED: Lidocaine 2% 100 MG/5 ML Syringe ONE (07:07)
[2023-06-27] MEDS ORDERED: Propofol 200 MG/20 ML SDV ONE ×2 (07:08→08:11)
[2023-06-27 09:08] VITALS: BP 130/80; PULSE 78
== END 2023-06-27 09:10 | disposition home or self-care (01) ==
LOC: JD.SDS 06:36
PROVIDERS: ATTEND Surgery
DX: Z12.11 Encounter for screening for malignant neoplasm of colon (principal); D12.4 Benign neoplasm of descending colon; K57.30 Diverticulosis of large intestine without perforation or abscess without bleeding; J30.1 Allergic rhinitis due to pollen; L23.0 Allergic contact dermatitis due to metals; E78.00 Pure hypercholesterolemia, unspecified; I10 Essential (primary) hypertension; K21.9 Gastro-esophageal reflux disease without esophagitis; E03.9 Hypothyroidism, unspecified; E66.9 Obesity, unspecified; E87.6 Hypokalemia; M79.662 Pain in left lower leg; I82.409 Acute embolism and thrombosis of unspecified deep veins of unspecified lower extremity; E83.42 Hypomagnesemia; E87.1 Hypo-osmolality and hyponatremia; Z86.16 Personal history of COVID-19; Z86.010 Personal history of colon polyps; Z91.048 Other nonmedicinal substance allergy status; Z91.040 Latex allergy status; Z90.49 Acquired absence of other specified parts of digestive tract; Z98.890 Other specified postprocedural states; Z79.890 Hormone replacement therapy; Z79.899 Other long term (current) drug therapy; Z68.30 Body mass index [BMI] 30.0-30.9, adult
CPT/HCPCS: 00811; 99100; J2704; J3490; J7120

== ENCOUNTER 2023-08-21 17:34 | Inpatient (IN) | payer MEDICARE, BC ==
[2023-08-21] MEDS ORDERED: Sodium Chloride 0.9% 10 ML Syringe FLUSH PRN (17:50)
[2023-08-21] MEDS ORDERED: Nitroglycerin/D5W 25 MG/250 ML BOTTLE IV SCH (18:15)
[2023-08-21 18:33] LABS: BASOPHILS PERCENT AUTO 0.2 % (0.0-1.0); EOSINOPHILS PERCENT AUTO 0.2 % (0.0-6.0); HEMATOCRIT 42.3 % (37.0-47.0); HEMOGLOBIN 14.5 gm/dl (12.0-16.0); IMMATURE GRAN PERCENT AUTO 0.6 % (0.0-0.4); LYMPHOCYTES ABSOLUTE AUTO 0.8 K/mm3 (1.0-4.8); LYMPHOCYTES PERCENT AUTO 4.8 % (24.0-44.0); MEAN CORPUSCULAR HEMOGLOBIN 31.9 pg (28.0-32.0); MEAN CORPUSCULAR HGB CONC 34.3 g/dl (32.0-36.0); MEAN PLATELET VOLUME 9.2 fl (9.4-12.3); MONOCYTES ABSOLUTE AUTO 1.4 K/mm3 (0.0-0.8); MONOCYTES PERCENT AUTO 8.2 % (0.0-8.0); NEUTROPHILS ABSOLUTE AUTO 14.4 K/mm3 (1.8-7.7); PLATELET COUNT,PLT 194 K/mm3 (150-400); RED BLOOD CELL COUNT 4.55 M/mm3 (4.10-5.30)
[2023-08-21 18:54] LABS: INR 1.09; PROTHROMBIN TIME 11.6 SECONDS (9.7-12.0)
[2023-08-21 18:57] LABS: A/G RATIO 0.7 (1-2); ANION GAP 14.1 (5-15); BILIRUBIN TOTAL 0.8 mg/dL (0.2-1.0); BUN/CREATININE RATIO 11.8 (14-18); CALCIUM 8.9 mg/dL (8.5-10.1); CREATININE 1.1 mg/dL (0.55-1.02); EST CRCL DRUG DOSING (CG) 39.76 mL/min; MAGNESIUM 1.5 mg/dL (1.8-2.4); POTASSIUM,K 4.1 mEq/L (3.5-5.1); PROTEIN TOTAL,TP 7.1 g/dl (6.4-8.2)
[2023-08-21] MEDS ORDERED: Sodium Chloride 0.9% 1,000 ML IV SCH (19:15)
[2023-08-21] MEDS ORDERED: Iopamidol 612 MG/ML 100 ML Bottle IVPUSH ONE (19:59)
[2023-08-21 20:35] LABS: APPEARANCE,URINE CLEAR (Clear); BILIRUBIN,URINE NEGATIVE (Negative); COLOR,URINE YELLOW (Yellow); GLUCOSE,URINE NEGATIVE (Negative); KETONES,URINE 1+ (Negative); LEUKOCYTE ESTERASE,URINE NEGATIVE (Negative); NITRITE,URINE NEGATIVE (Negative); OCCULT BLOOD,URINE TRACE-LYSED (Negative); PROTEIN,URINE 1+ (Negative)
[2023-08-21 20:45] LABS: RBC,URINE 0-5 /hpf (0-5); WBC,URINE 0-5 /hpf (0-5)
[2023-08-21 20:46] LABS: AMORPHOUS SEDIMENT,URINE RARE /hpf (NOT SEEN); BACTERIA,URINE FEW /hpf (FEW); EPITHELIAL CELLS,URINE 0-5 /hpf (0-5); MUCUS,URINE FEW /hpf (FEW); YEAST,URINE RARE (NOT SEEN)
[2023-08-21] MEDS: Morphine 2 MG/ML SYRINGE IVPUSH PRN (23:27)
[2023-08-22] MEDS: Sodium Chloride 0.9% 1,000 ML IV SCH ×4 (01:51→15:43)
[2023-08-22] MEDS: Morphine 2 MG/ML SYRINGE IVPUSH PRN ×3 (04:22→21:11)
[2023-08-22] MEDS: Acetaminophen 325 MG Tab PO PRN ×2 (06:15→14:20)
[2023-08-22 06:33] LABS: HEMOGLOBIN 13.6 gm/dl (12.0-16.0); MEAN CORPUSCULAR HEMOGLOBIN 31.9 pg (28.0-32.0); MEAN CORPUSCULAR VOLUME 93.7 fl (83.0-99.0); MEAN PLATELET VOLUME 9.6 fl (9.4-12.3); PLATELET COUNT,PLT 180 K/mm3 (150-400); RED BLOOD CELL COUNT 4.27 M/mm3 (4.10-5.30); WHITE BLOOD CELL COUNT,WBC 17.48 K/mm3 (3.9-11.3)
[2023-08-22 07:03] LABS: A/G RATIO 0.6 (1-2); ALBUMIN 2.5 g/dl (3.4-5.0); ANION GAP 15.1 (5-15); BILIRUBIN TOTAL 0.7 mg/dL (0.2-1.0); CALCIUM 8.4 mg/dL (8.5-10.1); EST CRCL DRUG DOSING (CG) 43.74 mL/min; POTASSIUM,K 4.1 mEq/L (3.5-5.1); PROTEIN TOTAL,TP 6.4 g/dl (6.4-8.2)
[2023-08-22] MEDS ORDERED: Cyclobenzaprine 10 MG Tab PO PRN (09:59)
[2023-08-22] MEDS: Gabapentin 100 MG Cap PO SCH ×2 (14:20→20:26)
[2023-08-22] MEDS: Doxycycline Monohydrate 100 MG Cap PO SCH (20:25)
[2023-08-22] MEDS ORDERED: Mirtazapine 15 MG Tab PO SCH (21:00)
[2023-08-23] MEDS: Sodium Chloride 0.9% 1,000 ML IV SCH (00:57)
[2023-08-23] MEDS: Acetaminophen 325 MG Tab PO PRN (03:51)
[2023-08-23 05:25] LABS: A/G RATIO 0.6 (1-2); ALBUMIN 2.1 g/dl (3.4-5.0); ANION GAP 13.8 (5-15); BILIRUBIN TOTAL 0.8 mg/dL (0.2-1.0); CALCIUM 8.1 mg/dL (8.5-10.1); EST CRCL DRUG DOSING (CG) 43.74 mL/min; MAGNESIUM 1.5 mg/dL (1.8-2.4); POTASSIUM,K 3.8 mEq/L (3.5-5.1); PROTEIN TOTAL,TP 5.7 g/dl (6.4-8.2)
[2023-08-23 05:27] LABS: BASOPHILS PERCENT AUTO 0.3 % (0.0-1.0); EOSINOPHILS ABSOLUTE AUTO 0.2 K/mm3 (0.0-0.4); HEMATOCRIT 34.2 % (37.0-47.0); HEMOGLOBIN 11.7 gm/dl (12.0-16.0); IMMATURE GRAN ABSOLUTE AUTO 0.06 K/mm3 (0.00-0.05); IMMATURE GRAN PERCENT AUTO 0.5 % (0.0-0.4); LYMPHOCYTES ABSOLUTE AUTO 1.3 K/mm3 (1.0-4.8); LYMPHOCYTES PERCENT AUTO 10.5 % (24.0-44.0); MEAN CORPUSCULAR HEMOGLOBIN 31.7 pg (28.0-32.0); MEAN CORPUSCULAR HGB CONC 34.2 g/dl (32.0-36.0); MEAN CORPUSCULAR VOLUME 92.7 fl (83.0-99.0); MEAN PLATELET VOLUME 10.2 fl (9.4-12.3); MONOCYTES ABSOLUTE AUTO 1.2 K/mm3 (0.0-0.8); MONOCYTES PERCENT AUTO 9.9 % (0.0-8.0); NEUTROPHILS ABSOLUTE AUTO 9.3 K/mm3 (1.8-7.7); NEUTROPHILS PERCENT AUTO 76.8 % (41.0-71.0); PLATELET COUNT,PLT 159 K/mm3 (150-400); RED BLOOD CELL COUNT 3.69 M/mm3 (4.10-5.30); WHITE BLOOD CELL COUNT,WBC 12.15 K/mm3 (3.9-11.3)
[2023-08-23] MEDS ORDERED: Levothyroxine 112 MCG Tab PO SCH (06:00)
[2023-08-23] MEDS: Gabapentin 100 MG Cap PO SCH (08:07)
[2023-08-23] MEDS ORDERED: Hydrochlorothiazide 12.5 MG Cap PO SCH (09:00)
[2023-08-23] MEDS ORDERED: Magnesium Oxide 400 MG Tab PO SCH (09:00)
[2023-08-23] MEDS ORDERED: Rivaroxaban 10 MG Tab PO SCH (09:00)
[2023-08-23] MEDS ORDERED: Pantoprazole 40 MG Tab.CR PO SCH (09:00)
[2023-08-23] MEDS ORDERED: Cholecalciferol (Vitamin D3) 5,000 UNIT Cap PO SCH (09:00)
[2023-08-23] MEDS ORDERED: POTASSIUM GLUCONATE 99 MG PO SCH (09:00)
[2023-08-23] MEDS ORDERED: Losartan 25 MG Tab PO SCH (09:00)
[2023-08-23] MEDS ORDERED: Furosemide 20 MG Tab PO SCH (09:00)
[2023-08-23] MEDS ORDERED: Ferrous Sulfate 324 MG Tab.EC PO SCH (09:00)
[2023-08-23] MEDS ORDERED: Anastrozole 1 MG Tab PO SCH (09:00)
[2023-08-23] MEDS: Doxycycline Monohydrate 100 MG Cap PO SCH (10:57)
[2023-08-23 13:09] VITALS: BP 137/72; PULSE 82
== END 2023-08-23 13:20 | disposition home or self-care (01) | DRG 440 ==
LOC: JD.ED 17:34 → JD.MS 21:20
PROVIDERS: ADMIT Internal Medicine; ATTEND Internal Medicine
DX: K85.80 Other acute pancreatitis without necrosis or infection (principal); K21.9 Gastro-esophageal reflux disease without esophagitis; M19.90 Unspecified osteoarthritis, unspecified site; I12.9 Hypertensive chronic kidney disease with stage 1 through stage 4 chronic kidney disease, or unspecified chronic kidney disease; N18.9 Chronic kidney disease, unspecified; E78.00 Pure hypercholesterolemia, unspecified; E03.9 Hypothyroidism, unspecified; D50.9 Iron deficiency anemia, unspecified; E66.9 Obesity, unspecified; Z86.16 Personal history of COVID-19; Z98.890 Other specified postprocedural states; Z86.718 Personal history of other venous thrombosis and embolism; Z90.49 Acquired absence of other specified parts of digestive tract; Z79.890 Hormone replacement therapy; Z79.899 Other long term (current) drug therapy; Z68.32 Body mass index [BMI] 32.0-32.9, adult; Z88.8 Allergy status to other drugs, medicaments and biological substances; Z98.49 Cataract extraction status, unspecified eye
CPT/HCPCS: 36415; 71045; 74177; 80053; 81001; 83690; 83735; 84484; 85025; 85610; 86140; 93005 ×2; J3490; J7030; Q9967; 82947; 85027; 94760; 94761; A9270-GY; J2270

== ENCOUNTER 2024-09-02 09:32 | Emergency (ER) | payer MEDICARE, BC ==
[2024-09-02] MEDS: Ondansetron 4 MG/2 ML SDV IVPUSH ONE (10:31)
[2024-09-02] MEDS: HYDROmorphone 0.5 MG/0.5 ML Syringe IVPUSH ONE ×2 (10:31→13:36)
[2024-09-02] MEDS: Sodium Chloride 0.9% 10 ML Syringe FLUSH PRN ×2 (10:40→11:45)
[2024-09-02 11:00] LABS: BASOPHILS PERCENT AUTO 0.6 % (0.0-1.0); EOSINOPHILS PERCENT AUTO 0.6 % (0.0-6.0); HEMATOCRIT 44.6 % (37.0-47.0); HEMOGLOBIN 14.9 gm/dl (12.0-16.0); IMMATURE GRAN ABSOLUTE AUTO 0.01 K/mm3 (0.00-0.05); IMMATURE GRAN PERCENT AUTO 0.1 % (0.0-0.4); LYMPHOCYTES ABSOLUTE AUTO 1.6 K/mm3 (1.0-4.8); MEAN CORPUSCULAR HEMOGLOBIN 31.9 pg (28.0-32.0); MEAN CORPUSCULAR HGB CONC 33.4 g/dl (32.0-36.0); MEAN CORPUSCULAR VOLUME 95.5 fl (83.0-99.0); MEAN PLATELET VOLUME 9.9 fl (9.4-12.3); MONOCYTES ABSOLUTE AUTO 0.3 K/mm3 (0.0-0.8); MONOCYTES PERCENT AUTO 4.8 % (0.0-8.0); NEUTROPHILS ABSOLUTE AUTO 5.1 K/mm3 (1.8-7.7); NEUTROPHILS PERCENT AUTO 71.9 % (41.0-71.0); PLATELET COUNT,PLT 202 K/mm3 (150-400); RED BLOOD CELL COUNT 4.67 M/mm3 (4.10-5.30); WHITE BLOOD CELL COUNT,WBC 7.03 K/mm3 (3.9-11.3)
[2024-09-02 11:26] LABS: ALBUMIN 3.6 g/dl (3.4-5.0); ANION GAP 11.2 (5-15); BILIRUBIN TOTAL 0.4 mg/dL (0.2-1.0); BUN/CREATININE RATIO 14.5 (14-18); CALCIUM 9.2 mg/dL (8.5-10.1); CREATININE 1.1 mg/dL (0.55-1.02); EST CRCL DRUG DOSING (CG) 39.15 mL/min; MAGNESIUM 1.9 mg/dL (1.8-2.4); POTASSIUM,K 4.2 mEq/L (3.5-5.1); PROTEIN TOTAL,TP 7.1 g/dl (6.4-8.2)
[2024-09-02] MEDS: Sodium Chloride 0.9% 100 ML IV SCH (11:44)
[2024-09-02] MEDS: Iopamidol 755 Mg/ML 100 ML Bottle IVPUSH ONE (11:44)
[2024-09-02] MEDS: Lactated Ringers 1,000 ML IV ONE (13:36)
[2024-09-02] MEDS: Ketorolac 30 MG/ML SDV IVPUSH ONE (13:37)
[2024-09-02] MEDS: Metoclopramide 10 MG/2 ML SDV IVPUSH ONE (15:28)
[2024-09-02 15:39] VITALS: BP 140/78; PULSE 55
== END 2024-09-02 15:38 | disposition home or self-care (01) ==
LOC: JD.ED 09:32
DX: R07.89 Other chest pain (principal); I10 Essential (primary) hypertension; K21.9 Gastro-esophageal reflux disease without esophagitis; E03.9 Hypothyroidism, unspecified; E66.9 Obesity, unspecified; Z68.33 Body mass index [BMI] 33.0-33.9, adult; Z79.899 Other long term (current) drug therapy; Z91.048 Other nonmedicinal substance allergy status; Z88.1 Allergy status to other antibiotic agents; Z91.018 Allergy to other foods
CPT/HCPCS: 36415; 71275; 71275-26; 80053; 83735; 84484; 85025; 93005; 96361; 96374; 96375; 96376; 99285-25; J1171; J1885; J2405; J2765; J3490; J7120; Q9967